=== PATIENT | female | born 1985 | race Caucasian/White ===

== ENCOUNTER 2020-07-05 22:42 | Emergency (ER) | payer MEDICAID ==
[~2020-07-05] VITALS: Ht 167.6 cm; Wt 70.0 kg
[2020-07-05 22:48] VITALS: BP 152/99
[2020-07-05] MEDS ORDERED: PROPARACAINE OPHTH 0.5%, 15ML ONE (23:05)
[2020-07-05] MEDS ORDERED: FLUORESCEIN OPHTHALMIC 1 MG STRIP ONE (23:05)
[2020-07-06] MEDS ORDERED: HYDROcodone/APAP 5/325 TABLET PO ONE
[2020-07-06] MEDS ORDERED: HYDROcodone/APAP 5/325 TABLET ONE
== END 2020-07-06 00:06 | disposition home or self-care (01) ==
LOC: ED 23:40
DX: H20.00 Unspecified acute and subacute iridocyclitis (principal)
CPT/HCPCS: 99283